=== PATIENT | male | born 1975 | race Caucasian/White ===

== ENCOUNTER 2019-04-21 11:43 | Emergency (ER) | payer BC, OTHER ==
[~2019-04-21] VITALS: Ht 180.3 cm; Wt 74.8 kg
--- NOTE | 2019-04-21 12:59 | NUR ---
PT BECAME DIAPHORETIC, EXPERIENCED XYNCOPAL EPISODE IN CT SCAN. PLACED ON MONITOR IN ER BED 8
--- NOTE | 2019-04-21 15:24 | NUR ---
RAPID FLU SWAB SENT TO LAB
--- NOTE | 2019-04-21 16:17 | NUR ---
Patient discharged to home in stable condition. Written and verbal after care instructions given. Patient verbalizes understanding of instruction.
[2019-04-21 16:31] VITALS: BP 128/84
== END 2019-04-21 16:20 | disposition home or self-care (01) ==
LOC: ER 11:46
DX: S20.211A Contusion of right front wall of thorax, initial encounter (principal); R55 Syncope and collapse; Z90.89 Acquired absence of other organs; W01.0XXA Fall on same level from slipping, tripping and stumbling without subsequent striking against object, initial encounter; Y93.89 Activity, other specified; Y92.89 Other specified places as the place of occurrence of the external cause; Y99.8 Other external cause status
CPT/HCPCS: 71100-TC; 82962-TC